=== PATIENT | male | born 1975 | race Hispanic/Latino ===

== ENCOUNTER 2019-01-12 02:42 | Emergency (ER) | payer SELFPAY ==
[2019-01-12 03:22] VITALS: O2SAT 99
--- NOTE | 2019-01-12 06:49 | ED PDOC ---
HPI: Psych/Substance Abuse Time Seen by Provider: 01/12/19 02:49 Chief Complaint (Nursing): Alcohol Ingestion History Per: Patient History/Exam Limitations: intoxication Additional Complaint(s): 43 year old with no PMHx presenting with alcohol intoxiation. Admits to drinking alcohol, denies drug use. Denies injuries. History is limited by intoxication. Past Medical History Reviewed: Historical Data, Nursing Documentation, Vital Signs, Unable To Obtain Vital Signs: Last Vital Signs Temp 98.0 F 01/12/19 03:22 Pulse 119 H 01/12/19 03:22 Resp 16 01/12/19 03:22 BP 135/94 H 01/12/19 03:22 Pulse Ox 99 01/12/19 03:22 - Family History Family History: States: Unknown Family Hx Review of Systems Review Of Systems: ROS cannot be obtained secondary to pt's inabilty to answer questions. Physical Exam - Reviewed Nursing Documentation Reviewed: Yes Vital Signs Reviewed: Yes - Physical Exam Appears: Positive for: Non-toxic, No Acute Distress. Negative for: Well (Intoxicated appearing, slurring speech) Head Exam: Positive for: ATRAUMATIC, NORMAL INSPECTION, NORMOCEPHALIC Skin: Positive for: Normal Color, Warm, DRY Eye Exam: Positive for: EOMI, Normal appearance, PERRL ENT: Positive for: Normal ENT Inspection Neck: Positive for: Normal, Painless ROM Cardiovascular/Chest: Positive for: Regular Rate, Rhythm Respiratory: Positive for: CNT, Normal Breath Sounds Gastrointestinal/Abdominal: Positive for: Normal Exam, Soft Back: Positive for: Normal Inspection Extremity: Positive for: Normal ROM Neurological/Psych: Positive for: Awake, Alert, Normal Tone, Gait (Intact). Negative for: Motor/Sensory Deficits, Facial Droop - ECG O2 Sat by Pulse Oximetry: 99 Pulse Ox Interpretation: Normal Medical Decision Making Medical Decision Makin43 year old with alcohol intoxication, no signs of external trauma --Will monitor for sobirety 700 --Patient is awake and alert, oriented with steady gait --Will discharge home Disposition - Clinical Impression Clinical Impression: Alcohol abuse - Patient ED Disposition Is Patient to be Admitted: No Counseled Patient/Family Regarding: Need For Followup - Disposition Referrals: Alcoholics Anonymous [Outside] Disposition: Routine/Home Disposition Time: 07:00 Condition: IMPROVED Instructions: Alcohol Use - When Is Drinking a Problem? Forms: [employer] (Filipino)
[2019-01-12 07:08] VITALS: BP 115/64; PULSE 110; RESP 22; TEMP 97.4
== END 2019-01-12 07:00 | disposition home or self-care (01) ==
LOC: H.ER 02:42
DX: F10.10 Alcohol abuse, uncomplicated (principal)